=== PATIENT | female | born 1970 ===

== ENCOUNTER 2018-03-14 08:26 | Emergency (ER) | payer MEDICAID ==
[2018-03-14 08:56] VITALS: RESP 18; TEMP 98.4
[2018-03-14] MEDS ORDERED: Morphine 4 mg/ml ISec IVP STA (09:17)
--- NOTE | 2018-03-14 09:52 | ED PDOC ---
Arrival/HPI - General Historian: Patient - History of Present Illness Narrative History of Present Illness (Text): Patient is a 48 yr old female with PMH Cholecystectomy and Gastric bypass who presents with epigastric pain and n/v beginning this AM. She states she has had 3 episodes of emesis this am. She otherwise denies NATARAJAN, CP, SOB, dizziness, f/c, cough, hematemesis, dysuria, stool changes, diarrhea, hematochezia and extremity pain/weakness. She additionally denies any new or foods recently. 03/14/18 09:50 Time/Duration: Prior to Arrival, 1-3 hours Symptom Onset: Sudden Symptom Course: Unchanged Quality: Cramping Severity Level: 8 Activities at Onset: Rest <Felecia Klein - Last Filed: 03/14/18 16:47> <Jorge Alberto Ceron DO - Last Filed: 03/14/18 17:07> - General Chief Complaint: Abdominal Pain Past Medical History - Provider Review Nursing Documentation Reviewed: Yes - Psychiatric Hx Substance Use: No - Surgical History Hx Cholecystectomy: Yes Hx Gastric Bypass Surgery: Yes Other/Comment: tummy tuck - Anesthesia Hx Anesthesia: Yes Hx Anesthesia Reactions: No Hx Malignant Hyperthermia: No <Felecia Klein - Last Filed: 03/14/18 16:47> Family/Social History - Physician Review Nursing Documentation Reviewed: Yes Family/Social History: Unknown Family HX Smoking Status: Never Smoked Hx Alcohol Use: No Hx Substance Use: No <Felecia Klein - Last Filed: 03/14/18 16:47> Allergies/Home Meds <Felecia Klein - Last Filed: 03/14/18 16:47> <Jorge Alberto Ceron DO - Last Filed: 03/14/18 17:07> Allergies/Adverse Reactions: Allergies No Known Allergies Allergy (Verified 03/14/18 08:53) Review of Systems - Physician Review All systems were reviewed & negative as marked: Yes - Review of Systems Constitutional: absent: Fatigue, Fevers Respiratory: absent: SOB, Cough Cardiovascular: absent: Chest Pain, Syncope Gastrointestinal: Abdominal Pain, Nausea, Vomiting. absent: Stool Changes, Constipation, Diarrhea, Hematochezia, Hematemesis Genitourinary Female: absent: Dysuria Musculoskeletal: absent: Arthralgias Skin: absent: Rash, Skin Lesions Neurological: absent: Headache, Dizziness Endocrine: absent: Diaphoresis <Felecia Klein - Last Filed: 03/14/18 16:47> Physical Exam Vital Signs Reviewed: Yes Vital Signs Temp Pulse Resp BP Pulse Ox 03/14/18 08:27 98.4 F 72 18 154/87 H 98 Temperature: Afebrile Blood Pressure: Hypertensive Pulse: Regular Respiratory Rate: Normal Appearance: Positive for: Well-Appearing, Non-Toxic, Comfortable Pain Distress: Mild Mental Status: Positive for: Alert and Oriented X 3 - Systems Exam Head: Present: Atraumatic, Normocephalic Extroacular Muscles: Present: EOMI Mouth: Present: Moist Mucous Membranes Neck: Present: Normal Range of Motion Respiratory/Chest: Present: Clear to Auscultation, Good Air Exchange. No: Respiratory Distress, Accessory Muscle Use Cardiovascular: Present: Regular Rate and Rhythm, Normal S1, S2. No: Murmurs Abdomen: Present: Tenderness (epigastric and RUQ), Normal Bowel Sounds, Guarding (epigastric and RUQ). No: Distention, Peritoneal Signs Upper Extremity: Present: Normal Inspection. No: Cyanosis, Edema Lower Extremity: Present: Normal Inspection, NORMAL PULSES. No: Edema, CALF TENDERNESS Neurological: Present: GCS=15, CN II-XII Intact, Speech Normal Skin: Present: Warm, Dry, Normal Color. No: Rashes Psychiatric: Present: Alert, Oriented x 3, Normal Insight, Normal Concentration <KleinFelecia - Last Filed: 03/14/18 16:47> Vital Signs Temp Pulse Resp BP Pulse Ox 03/14/18 08:27 98.4 F 72 18 154/87 H 98 <Jorge Alberto Ceron DO - Last Filed: 03/14/18 17:07> Medical Decision Making ED Course and Treatment: Impression: 48 F with pmh cholecystectomy and gastric bypass 2013 presents with upper abdominal pain and n/v x3 this am Plan: CBC CMp Lipase CT A/P EKG POC preg morphine reassess and dispo 03/14/18 09:54 Discussed with patient the results of CT scan and lab work, discussed impression and plan for patient to follow up with her PMD Dr. Cavazos for further evaluation and plan to give prescription for pepcid and zofran 03/14/18 13:04 - RAD Interpretation Narrative RAD Interpretations (Text): 03/14/18 12:56 Radiology Results Abdomen/Pelvis CT 03/14/18 09:17 IMPRESSION: 1. Small left adnexal cyst identified 1.7 cm greatest dimension. Trace fluid seen the pelvis, potentially reflecting partial cyst rupture though this is a nonspecific finding. No suspicious right adnexal finding. 2. Postop changes suggest prior gastric bypass surgery. Clinically correlate. No bowel obstruction, measure edema or free intra peritoneal gas collection. 3. Gallbladder not identified potentially reflecting surgical absence. Clinically correlate. No dilatation of the biliary tree appreciable. 4. Appendix not identified. No definite pattern of appendicitis right lower quadrant. Radiology Orders: 03/14/18 09:17 ABD & PELVIS IV CONTRAST ONLY [CT] Stat - Medication Orders Current Medication Orders: Discontinued Medications Morphine Sulfate (Morphine) 4 mg IVP STAT STA Stop: 03/14/18 09:18 Ondansetron HCl (Zofran Inj) 4 mg IVP STAT STA Stop: 03/14/18 09:18 Pantoprazole Sodium (Protonix Inj) 40 mg IVP STAT STA Stop: 03/14/18 09:18 <Felecia Klein - Last Filed: 03/14/18 16:47> ED Course and Treatment: 03/14/18 10:00 48 year old female presents to the ED for evaluation of upper abdominal pain associated with nausea and vomiting. In agreement with resident note which contains more details about the patient. Patient seen and evaluated with resident. Came up with plan and treatment together. - Lab Interpretations Lab Results: Total Bilirubin 0.3 mg/dL (0.2-1.3) 03/14/18 09:46 AST 108 U/L (14-36) H 03/14/18 09:46 ALT 82 U/L (7-56) H 03/14/18 09:46 Alkaline Phosphatase 115 U/L (38-126) 03/14/18 09:46 Total Protein 7.3 g/dL (5.8-8.3) 03/14/18 09:46 Albumin 4.1 g/dL (3.0-4.8) 03/14/18 09:46 Globulin 3.1 gm/dL 03/14/18 09:46 Albumin/Globulin Ratio 1.3 (1.1-1.8) 03/14/18 09:46 Lipase 212 U/L (23-300) 03/14/18 09:46 - RAD Interpretation Radiology Orders: 03/14/18 09:17 ABD & PELVIS IV CONTRAST ONLY [CT] Stat - Medication Orders Current Medication Orders: Discontinued Medications Morphine Sulfate (Morphine) 4 mg IVP STAT STA Stop: 03/14/18 09:18 Last Admin: 03/14/18 09:58 Dose: 4 mg MAR Pain Assessment Document 03/14/18 09:58 GMD (Rec: 03/14/18 09:58 GMD [facility] [place] Pain Reassessment Is this a pain reassessment? No IVP Administration Document 03/14/18 09:58 GMD (Rec: 03/14/18 09:58 GMD [facility] [place] Charges for Administration # of IVP Administrations 1 Ondansetron HCl (Zofran Inj) 4 mg IVP STAT STA Stop: 03/14/18 09:18 Last Admin: 03/14/18 09:58 Dose: 4 mg IVP Administration Document 03/14/18 09:58 GMD (Rec: 03/14/18 09:58 GMD [facility] [place] Charges for Administration # of IVP Administrations 1 Pantoprazole Sodium (Protonix Inj) 40 mg IVP STAT STA Stop: 03/14/18 09:18 Last Admin: 03/14/18 09:58 Dose: 40 mg IVP Administration Document 03/14/18 09:58 GMD (Rec: 03/14/18 09:58 GMD [facility] [place] Charges for Administration # of IVP Administrations 1 <Jorge Alberto Ceron DO Filed: 03/14/18 17:07> - PA / TECHNOLOGY PROJECT MANAGER / Resident Statement MAUREEN has reviewed & agrees with the documentation as recorded. MAUREEN has examined the patient and agrees with the treatment plan. - Scribe Statement The provider has reviewed the documentation as recorded by the Melaibe Bryant Albarado. All medical record entries made by the Melaibfarshad were at my direction and personally dictated by me. I have reviewed the chart and agree that the record accurately reflects my personal performance of the history, physical exam, medical decision making, and the department course for this patient. I have also personally directed, reviewed, and agree with the discharge instructions and disposition. <Jorge Alberto Ceron DO Filed: 03/14/18 17:07> Disposition/Present on Arrival - Present on Arrival Any Indicators Present on Arrival: No History of DVT/PE: No History of Uncontrolled Diabetes: No Urinary Catheter: No History of Decub. Ulcer: No History Surgical Site Infection Following: None - Disposition Have Diagnosis and Disposition been Completed?: Yes Disposition Time: 13:05 Patient Plan: Discharge <Felecia Klein - Last Filed: 03/14/18 16:47> - Disposition Disposition Time: 12:55 <Jorge Alberto Ceron DO - Last Filed: 03/14/18 17:07> - Disposition Diagnosis: Acid reflux disease Disposition: HOME/ ROUTINE Condition: STABLE Discharge Instructions (ExitCare): Acid Reflux (Gastroesophageal Reflux Disease), Adult (DC) Print Language: MOHAWK Additional Instructions: please follow up with your primary care physician Dr. Cavazos within 3-5 days of discharge If your symptoms continue/worsen or if new symptoms arise please return to the nearest ER immediately Prescriptions: Famotidine [Pepcid] 20 mg PO BID #20 tab Ondansetron ODT [Zofran ODT] 4 mg PO Q8 PRN #20 odt PRN Reason: Nausea/Vomiting Referrals: Darcie Cavazos DO [Primary Care Provider] - Follow up with primary Forms: [employer] ([place])
[2018-03-14 10:09] LABS: BASO # 0.01 K/mm3 (0.0-2.0); BASO % 0.2 % (0.0-3.0); EOS # 0.2 (0.0-0.7); EOS % 2.9 % (1.5-5.0); HEMOGLOBIN 11.1 g/dL (12.0-16.0); LYMPH # 1.8 (1.2-3.4); MEAN CORPUSCULAR HEMOGLOBIN 27.8 pg (25.0-35.0); MEAN CORPUSCULAR HGB CONC 31.5 g/dl (31.0-37.0); MEAN PLATELET VOLUME 13.4 fl (7.0-11.0); MONO # 0.3 (0.1-0.6); MONO % 5.2 % (1.0-6.0); RED CELL DISTRIBUTION WIDTH 13.1 % (11.5-14.5); WHITE BLOOD COUNT 6.1 10^3/uL (4.5-11.0)
[2018-03-14 10:21] LABS: ALB/GLOB RATIO 1.3 (1.1-1.8); ALBUMIN 4.1 g/dL (3.0-4.8); ALT/SGPT 82 U/L (7-56); AST/SGOT 108 U/L (14-36); BLOOD UREA NITROGEN 13 mg/dL (7-21); GFR NON-AFRICAN AMERICAN > 60; LIPASE 212 U/L (23-300)
[2018-03-14] MEDS ORDERED: Iohexol 350 MG/100 ML VIAL ONE (10:56)
--- NOTE | 2018-03-14 11:34 | CARD ---
APPROVED REPORT Date of service: 03/14/2018 EKG Measurement Heart [id number] <Conclusion> Sinus rhythm with premature atrial complexes Otherwise normal ECG
--- NOTE | 2018-03-14 12:25 | CT ---
Date of service: 03/14/2018 PROCEDURE: CT Abdomen and Pelvis with contrast HISTORY: abd pain COMPARISON: Transvaginal pelvic ultrasound 07/09/2017. TECHNIQUE: Following the intravenous administration of iodinated contrast material, a CT examination of the abdomen and pelvis performed from the domes of the diaphragms to the symphysis pubis with reformatted datasets provided in axial, sagittal and coronal planes. Oral contrast was not administered as per referring physician request. Coronal and sagittal reformats were generated. Contrast dose: Omnipaque 350, 100 cc Radiation dose: Total exam DLP = 1005.78 mGy-cm. This CT exam was performed using one or more of the following dose reduction techniques: Automated exposure control, adjustment of the mA and/or kV according to patient size, and/or use of iterative reconstruction technique. FINDINGS: LOWER THORAX: Unremarkable. LIVER: Unremarkable. No gross lesion or ductal dilatation. GALLBLADDER AND BILE DUCTS: Not identified. Possibly surgically absent. Clinically correlate further. PANCREAS: Unremarkable. No gross lesion or ductal dilatation. SPLEEN: Unremarkable. ADRENALS: Unremarkable. No mass. KIDNEYS AND URETERS: Unremarkable. No hydronephrosis. No solid mass. VASCULATURE: Unremarkable. No aortic aneurysm. No aortic atherosclerotic calcification or mural plaque present. BOWEL: Evaluation of the gastrointestinal tract is limited due to the lack of oral contrast administration. Stomach is collapsed and not well evaluated. Postop changes seen in the left upper quadrant and central abdomen suggestive of prior gastric bypass surgery. No bowel obstruction identified. [id number] amount retained fecal material scattered throughout the large bowel. APPENDIX: Appendix not identified. No definitive pattern to suggest appendicitis at this time. PERITONEUM: Unremarkable. No free fluid. No free air. LYMPH NODES: Unremarkable. No enlarged lymph nodes. BLADDER: Unremarkable. REPRODUCTIVE: 1.7 cm left adnexal cyst. Trace fluid is identified in the pelvis may indicate partial rupture. Clinically correlate further. BONES: Partial fusion L4-5, likely on a congenital basis straightening of the thoracolumbar curvature is appreciate with limited reversal of lumbar curvature evident. OTHER FINDINGS: None. IMPRESSION: 1. Small left adnexal cyst identified 1.7 cm greatest dimension. Trace fluid seen the pelvis, potentially reflecting partial cyst rupture though this is a nonspecific finding. No suspicious right adnexal finding. 2. Postop changes suggest prior gastric bypass surgery. Clinically correlate. No bowel obstruction, measure edema or free intra peritoneal gas collection. 3. Gallbladder not identified potentially reflecting surgical absence. Clinically correlate. No dilatation of the biliary tree appreciable. 4. Appendix not identified. No definite pattern of appendicitis right lower quadrant.
[2018-03-14 13:17] VITALS: BP 123/76; PULSE 70; O2SAT 97
== END 2018-03-14 13:25 | disposition home or self-care (01) ==
LOC: ED 08:26
DX: K21.9 Gastro-esophageal reflux disease without esophagitis (principal)
CPT/HCPCS: 74177; 80053; 81025; 83690; 83735; 85025; 93005; 96374; 96375; 99285; C9113; J2270; J2405; Q9967